=== PATIENT | female | born 1950 | race Caucasian/White ===

== ENCOUNTER 2022-02-21 22:30 | Emergency (ER) | payer MEDICARE, OTHER ==
[~2022-02-21] VITALS: Ht 170.2 cm; Wt 56.7 kg
--- OUTSIDE RECORDS SUMMARY | 2022-02-21 22:36 | XMS ---
PreManage Notification: ANIA HURT Security Nuclear Instructor Events No recent Security Events currently on file CRITERIA MET - SAIP CARE PROVIDERS SEEMA NGUYEN Nurse Practitioner: Current PHONE: [phone] Roslyn has no Care Guidelines for this patient. E.Brandon VISIT COUNT (12 MO.) 1 Simi Miles M.C. 1 MAT Elliott TOTAL 2 NOTE: Visits indicate total known visits. 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 factor, multiple sites - SOB - Hypothyroidism, unspecified - Acute respiratory failure with hypoxia INPATIENT VISIT TRACKING (12 MO.) 10/17/2021 12:15 [facility] TYPE: [facility] DIAGNOSES: - Acute respiratory failure with hypoxia - COVID-19 - Bipolar disorder, unspecified - Respiratory failure, unspecified, unspecified whether with hypoxia or hypercapnia - Rheumatoid arthritis 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
[2022-02-21] MEDS ORDERED: HYDROXYCHLOROQ200 MG PO (23:21)
[2022-02-21] MEDS ORDERED: MODAFINIL200 MG PO (23:22)
[2022-02-21] MEDS ORDERED: LEVOTHYROXINE88 MCG PO (23:24)
[2022-02-21] MEDS ORDERED: LAMOTRIGINE200 MG PO (23:24)
[2022-02-21] MEDS ORDERED: SULFASALAZINE500 MG PO (23:25)
[2022-02-22] MEDS ORDERED: PREDNISONE20 MG PO (00:15)
[2022-02-22] MEDS ORDERED: VENTOLIN HFA18 GM INH (00:15)
[2022-02-22] MEDS ORDERED: AZITHROMYCIN500 MG PO (00:15)
== END 2022-02-22 00:44 | disposition home or self-care (01) ==
LOC: ED 22:30
DX: J44.1 Chronic obstructive pulmonary disease with (acute) exacerbation (principal); Z87.891 Personal history of nicotine dependence; E78.00 Pure hypercholesterolemia, unspecified; E03.9 Hypothyroidism, unspecified; Z88.8 Allergy status to other drugs, medicaments and biological substances; Z79.899 Other long term (current) drug therapy; Z20.822 Contact with and (suspected) exposure to COVID-19
CPT/HCPCS: 36415; 71045; 80053; 83880; 85025; 87502; 94640; 99285-25; U0003

== ENCOUNTER 2024-05-20 20:29 | Emergency (ER) | payer MEDICARE, OTHER ==
[~2024-05-20] VITALS: Ht 170.2 cm; Wt 58.0 kg
[~2024-05-20 20:29] MED LIST: AZITHROMYCIN500 MG PO; CYCLOBENZAPRINE10 MG PO; HYDROXYCHLOROQ200 MG PO; LAMOTRIGINE200 MG PO; LEVOTHYROXINE88 MCG PO; MODAFINIL200 MG PO; OXYCODONE-ACET1 EAC1 PO; PREDNISONE20 MG PO; SULFASALAZINE500 MG PO; TRAZODONE HCL100 MG PO; VENTOLIN HFA18 GM INH
[2024-05-20] MEDS ORDERED: PREDNISONE20 MG PO (20:58)
[2024-05-20] MEDS ORDERED: DEXAMETHASONE SOD PHOS 10 MG/ML VIAL IM ONE (21:00)
[2024-05-20 21:06] VITALS: BP 136/86
--- OUTSIDE RECORDS SUMMARY | 2024-05-21 18:01 | XMS ---
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 Rose VISIT COUNT (12 MO.) 3 MAT Elliott TOTAL 3 NOTE: Visits indicate total known visits. ED/UCC VISIT TRACKING (12 MO.) 05/20/2024 20:30 [facility] TYPE: Emergency COMPLAINT: - NECK PAIN 12/25/2023 09:54 [facility] TYPE: Emergency COMPLAINT: - FALL, R HAND INJURY DIAGNOSES: - Allergy status to other antibiotic agents - Allergy status to other drugs, medicaments and biological substances - Hormone replacement therapy - Hypothyroidism, unspecified - Nondisplaced fracture of distal pole of navicular [scaphoid] bone of right wrist, initial encounter for closed fracture - Other group home (current) drug therapy - Pain in right finger(s) - Pure hypercholesterolemia, unspecified - Rheumatoid arthritis, unspecified - Unspecified fall, initial encounter 06/01/2023 21:56 [facility] TYPE: Emergency COMPLAINT: - NECK PAIN DIAGNOSES: - Allergy status to other antibiotic agents - Allergy status to other drugs, medicaments and biological substances - Cervicalgia - Hypothyroidism, unspecified - Other group home (current) drug therapy - Personal history of nicotine dependence - Torticollis INPATIENT VISIT TRACKING (12 MO.) No inpatient visits to display in this time frame [email or web address]
== END 2024-05-20 21:09 | disposition home or self-care (01) ==
LOC: ED 20:29
DX: M75.51 Bursitis of right shoulder (principal); E03.9 Hypothyroidism, unspecified; Z87.891 Personal history of nicotine dependence; Z79.899 Other long term (current) drug therapy; Z88.1 Allergy status to other antibiotic agents; Z88.8 Allergy status to other drugs, medicaments and biological substances
CPT/HCPCS: J1100

== ENCOUNTER 2024-06-28 15:43 | Emergency (ER) | payer MEDICARE, OTHER ==
[~2024-06-28] VITALS: Ht 165.1 cm; Wt 58.1 kg
[2024-06-28] MEDS ORDERED: ALENDRONATE SOD70 MG PO (16:04)
[2024-06-28] MEDS ORDERED: PANTOPRAZOLE SO20 MG PO (16:04)
[2024-06-28] MEDS ORDERED: METHOTREXATE2.5 MG PO (16:04)
[2024-06-28] MEDS ORDERED: OXYCODONE/APAP 5/325 TAB PO ONE (16:15)
[2024-06-28] MEDS ORDERED: HYDROCODON-ACE1 EA10 PO (17:47)
[2024-06-28 18:00] VITALS: BP 115/67
== END 2024-06-28 18:00 | disposition home or self-care (01) ==
LOC: ED 15:43
DX: M79.672 Pain in left foot (principal); J43.9 Emphysema, unspecified; Z87.891 Personal history of nicotine dependence; Z88.1 Allergy status to other antibiotic agents; Z88.8 Allergy status to other drugs, medicaments and biological substances; Z79.890 Hormone replacement therapy; Z79.899 Other long term (current) drug therapy
CPT/HCPCS: 73630; 93971; 99284-25

== ENCOUNTER 2024-08-24 12:00 | Emergency (ER) | payer MEDICARE, OTHER ==
[~2024-08-24] VITALS: Ht 165.1 cm; Wt 71.5 kg
[~2024-08-24 12:00] MED LIST changes: +ALENDRONATE SOD70 MG PO; +HYDROCODON-ACE1 EA10 PO; +METHOTREXATE2.5 MG PO; +PANTOPRAZOLE SO20 MG PO
[2024-08-24] MEDS ORDERED: HYDROmorphone HCL 1 MG/ML SYR IV ONE (12:45)
[2024-08-24] MEDS ORDERED: ondansetron HCL 4 MG/2 ML VIAL IV ONE (12:45)
[2024-08-24 12:46] LABS: EOSINOPHILS 2.4 % (0-6); HEMATOCRIT 34.7 % (35.0-50.0); HEMOGLOBIN 11.4 g/dL (12.0-18.0); LYMPHOCYTES 18.3 % (24-44); MCHC 32.8 g/dl (30-36); MCV 88.2 fl (81-99); MONOCYTES 10.9 % (0-12); NEUTROPHILS 67.4 % (39-80); PLATELET COUNT 198 K/uL (140-440); RBC 3.94 M/ul (4.3-5.7); RDW 16.9 (10.5-15.0)
[2024-08-24 12:55] LABS: ALBUMIN 3.2 g/dL (3.4-5.0); ALBUMIN/GLOBULIN RATIO 0.86 (1.1-2.4); ANION GAP 6.2 (7-21); BILIRUBIN, TOTAL 0.3 ng/dL (0.2-1.0); CALCIUM 8.7 mg/dL (8.5-10.1); POTASSIUM 4.2 mmol/L (3.5-5.1); PROTEIN, TOTAL 6.9 g/dL (6.4-8.2)
[2024-08-24 13:12] LABS: BUN/CREATININE RATIO 26.47 (6.0-28.6); CREATININE, SERUM 0.68 mg/dL (0.55-1.02)
[2024-08-24 14:17] LABS: BILIRUBIN, URINE NEGATIVE (negative); BLOOD/HGB, URINE SMALL (Negative); KETONE, URINE NEGATIVE (Negative); LEUK ESTERASE, URINE NEGATIVE (negative); NITRITE, URINE NEGATIVE (negative); PH, URINE 5.5 (5-7)
[2024-08-24 14:33] LABS: BACTERIA, URINE NONE SEEN /hpf (negative); CASTS, URINE NONE SEEN \\lpf; COLLECTION TYPE, URINE CLEAN CATCH; CRYSTALS, URINE NONE SEEN (0-1+); EPITHELIAL CELLS, URINE SQUAMOUS 1+ /lpf (0-1+); RED BLOOD CELLS, URINE 0-1 /hpf (0-5); REFLEX CULTURE, URINE No (No); WHITE BLOOD CELLS, URINE 0-1 /HPF (0-5)
[2024-08-24] MEDS ORDERED: PERCOCET 5-3251 EACH PO (15:01)
[2024-08-24 15:07] VITALS: BP 125/69
== END 2024-08-24 15:07 | disposition home or self-care (01) ==
LOC: ED 12:00
PROVIDERS: Emergency Medicine
DX: M70.72 Other bursitis of hip, left hip (principal); J43.9 Emphysema, unspecified; Z87.891 Personal history of nicotine dependence; Z88.8 Allergy status to other drugs, medicaments and biological substances; Z79.890 Hormone replacement therapy; Z79.899 Other long term (current) drug therapy
CPT/HCPCS: 36415; 74177; 80053; 81001; 83690; 85025; 93971; 96375; 99284-25; J1171; J2405; Q9967

== ENCOUNTER 2025-03-26 10:30 | Emergency (ER) | payer MEDICARE, OTHER ==
[~2025-03-26] VITALS: Ht 165.1 cm; Wt 56.0 kg
[~2025-03-26 10:30] MED LIST changes: +PERCOCET 5-3251 EACH PO
[2025-03-26 12:04] VITALS: BP 107/65
== END 2025-03-26 12:04 | disposition home or self-care (01) ==
LOC: ED 10:30
DX: S01.112A Laceration without foreign body of left eyelid and periocular area, initial encounter (principal); E03.9 Hypothyroidism, unspecified; W01.0XXA Fall on same level from slipping, tripping and stumbling without subsequent striking against object, initial encounter; Z79.899 Other long term (current) drug therapy; Z88.1 Allergy status to other antibiotic agents; Z88.8 Allergy status to other drugs, medicaments and biological substances; Z87.891 Personal history of nicotine dependence
CPT/HCPCS: 12011; 99282